=== PATIENT | female | born 1950 | race Caucasian/White ===

== ENCOUNTER 2017-09-30 10:08 | Emergency (ER) | payer MEDICARE, OTHER ==
[~2017-09-30] VITALS: Ht 165.1 cm; Wt 129.3 kg
[~2017-09-30 10:08] MED LIST: ACETAMINOPHEN325 M1 PO; ACIDOPHILUS1 EAC1 PO; ALLOPURINOL300 MG PO; ASPIRIN CHEW81 MG PO; AUGMENTIN 875-1 EACH PO; BACTROBAN15 GM TOP; CLINDAMYCIN HC150 MG PO; COLACE100 MG PO; CORDARONE200 MG PO; COREG3.125 MG PO; CYCLOBENZAPRINE5 MG PO; FERROUS SULFAT325 MG PO; GLIPIZIDE5 MG PO; HUMALOG MI100 UNIT/4; LANTUS100 UNITS/ SC; LASIX40 MG PO; LEVAQUIN500 MG PO; LEVEMIR100 UNIT/1; LEVOTHYROXINE100 MC1 IV; LOFIBRA160 MG PO; MAALOX ADVANCE770 ML PO; NEURONTIN300 MG PO; NORCO 10-325 T1 EACH PO; NYSTATIN1 EAC1 TOP; PERI-COLACE TA1 EACH PO; POTASSIUM CHLO20 ME1 PO; SENOKOT-S TABL1 EACH PO; SYNTHROID100 MCG PO; TEMAZEPAM15 MG PO; TYLENOL WITH C1 EACH PO; ULTRAM50 MG PO; WARFARIN SODIUM2 MG PO; ZOFRAN ODT4 MG PO; ZOLOFT100 MG PO
[2017-09-30 11:08] VITALS: BP 132/63
[2017-09-30 14:11] LABS: RED BLOOD COUNT 4.39 x10e6/uL (3.6-5.1)
[2017-09-30 14:12] LABS: BASOPHILS % 0.7 % (0.0-1.0); EOSINOPHILS # (AUTO) 0.1 (0.0-0.4); EOSINOPHILS % 2.2 % (0.0-6.0); HEMOGLOBIN 13.6 g/dL (12.0-16.0); LYMPHOCYTES % 17.7 % (18.0-39.1); MEAN CORPUSCULAR HGB CONC 32.4 g/dL (31-35); MEAN CORPUSCULAR VOLUME 95.7 fL (81-99); MONOCYTES # (AUTO) 0.3 (0.2-0.8); MONOCYTES % 6.2 % (4.4-11.3); NEUTROPHILS # (AUTO) 3.9 (2.1-6.9); NEUTROPHILS % 72.3 % (38.7-80.0); PLATELET COUNT 179 x10e3/uL (140-360); RED CELL DISTRIBUTION WIDTH 15.4 % (11.7-14.4)
[2017-09-30 14:22] LABS: INR 0.97; PROTHROMBIN TIME 13.4 seconds (11.9-14.5)
[2017-09-30 14:23] LABS: PARTIAL THROMBOPLASTIN TIME 31.9 seconds (23.8-35.5)
[2017-09-30 14:34] LABS: ALBUMIN 3.8 g/dL (3.5-5.0); ALBUMIN/GLOBULIN RATIO 0.9 (0.8-2.0); CALCIUM 9.8 mg/dL (8.4-10.2); CREATININE, SERUM 1.27 mg/dL (0.57-1.11)
== END 2017-09-30 18:22 | disposition left against medical advice (07) ==
LOC: ER 10:08
DX: L03.115 Cellulitis of right lower limb (principal)
CPT/HCPCS: 36415; 80053; 85025; 85610; 85730; 99284

== ENCOUNTER 2018-03-24 12:36 | Outpatient (RCR) | payer MEDICARE, OTHER ==
[2018-03-24] MEDS ORDERED: FLUOCINONIDE 0.05% 1 EA/15 GM TUBE ONE (17:04)
[2018-03-24] MEDS ORDERED: LIDOCAINE VISC 2% SOLN 15 ML UDC ONE (17:04)
== END 2018-03-26 ==
LOC: WCC 12:36
PROVIDERS: ATTEND Family Medicine Adult Medicine
DX: E11.65 Type 2 diabetes mellitus with hyperglycemia (principal); I83.11 Varicose veins of right lower extremity with inflammation; I79.8 Other disorders of arteries, arterioles and capillaries in diseases classified elsewhere; I89.0 Lymphedema, not elsewhere classified; I87.2 Venous insufficiency (chronic) (peripheral); R60.0 Localized edema; M10.9 Gout, unspecified; S80.822A Blister (nonthermal), left lower leg, initial encounter; N18.3 Chronic kidney disease, stage 3 (moderate); I10 Essential (primary) hypertension; I48.2 Chronic atrial fibrillation; I50.9 Heart failure, unspecified; M19.90 Unspecified osteoarthritis, unspecified site; E03.8 Other specified hypothyroidism; G47.33 Obstructive sleep apnea (adult) (pediatric); E66.01 Morbid (severe) obesity due to excess calories; E78.00 Pure hypercholesterolemia, unspecified; F32.9 Major depressive disorder, single episode, unspecified; Z99.3 Dependence on wheelchair
CPT/HCPCS: 36415; 82948

== ENCOUNTER 2018-04-26 01:00 | Outpatient (RCR) | payer MEDICARE, OTHER | END 2018-04-26 02:00 | disposition home or self-care (01) | LOC: WCC 01:00 | PROVIDERS: ATTEND Family Medicine Adult Medicine | DX: E11.65 Type 2 diabetes mellitus with hyperglycemia (principal); I87.312 Chronic venous hypertension (idiopathic) with ulcer of left lower extremity; L97.821 Non-pressure chronic ulcer of other part of left lower leg limited to breakdown of skin; I79.8 Other disorders of arteries, arterioles and capillaries in diseases classified elsewhere; I89.0 Lymphedema, not elsewhere classified; R60.0 Localized edema; I87.2 Venous insufficiency (chronic) (peripheral); I83.11 Varicose veins of right lower extremity with inflammation; M10.9 Gout, unspecified; N18.3 Chronic kidney disease, stage 3 (moderate); I10 Essential (primary) hypertension; I50.9 Heart failure, unspecified; E78.00 Pure hypercholesterolemia, unspecified; E66.01 Morbid (severe) obesity due to excess calories; F32.9 Major depressive disorder, single episode, unspecified; I48.2 Chronic atrial fibrillation; E03.8 Other specified hypothyroidism; M19.90 Unspecified osteoarthritis, unspecified site; G47.33 Obstructive sleep apnea (adult) (pediatric); Z99.3 Dependence on wheelchair | CPT/HCPCS: 36415; 82948 ==

== ENCOUNTER 2018-05-03 01:00 | Outpatient (RCR) | payer MEDICARE, OTHER | END 2018-05-04 01:00 | disposition home or self-care (01) | LOC: WCC 01:00 | PROVIDERS: ATTEND Family Medicine Adult Medicine | DX: E11.65 Type 2 diabetes mellitus with hyperglycemia (principal); I83.11 Varicose veins of right lower extremity with inflammation; I89.0 Lymphedema, not elsewhere classified; R60.0 Localized edema; E03.8 Other specified hypothyroidism; E66.01 Morbid (severe) obesity due to excess calories; E78.00 Pure hypercholesterolemia, unspecified; F32.9 Major depressive disorder, single episode, unspecified; G47.33 Obstructive sleep apnea (adult) (pediatric); I10 Essential (primary) hypertension; I48.2 Chronic atrial fibrillation; I50.9 Heart failure, unspecified; I79.8 Other disorders of arteries, arterioles and capillaries in diseases classified elsewhere; I87.2 Venous insufficiency (chronic) (peripheral); L81.9 Disorder of pigmentation, unspecified; M10.9 Gout, unspecified; M19.90 Unspecified osteoarthritis, unspecified site; N18.3 Chronic kidney disease, stage 3 (moderate); Z99.3 Dependence on wheelchair ==

== ENCOUNTER → 2019-04-24 | Outpatient (CLI) | payer MEDICARE, OTHER ==
--- NOTE | 2019-04-24 12:33 | Diagnostic Imaging Report ---
EXAMINATION: KNEE LEFT THREE VIEWS INDICATION: Knee pain COMPARISON: None FINDINGS: No acute fracture or dislocation. There is varus angulation of the left knee joint. No substantial joint effusion. Severe medial and patellofemoral compartment predominant degenerative changes with joint space narrowing and bulky osteophyte formation. IMPRESSION: No acute osseous injury. Severe medial and patellofemoral compartment predominant degenerative changes with resulting varus angulation of the left knee. Signed by: Nicky Barr MD on 04/24/2019 12:30 PM
--- NOTE | 2019-05-01 08:21 | Diagnostic Imaging Report ---
#[id number] - [id number] #BILATERAL DIGITAL SCREENING MAMMOGRAM WITH CAD: 04/24/2019 CLINICAL: Routine screening. No prior exams were available for comparison. The tissue of both breasts is predominantly fatty. Current study was also evaluated with a Computer Aided Detection (CAD) system. The patient could not tolerate compression and only CC views were obtained. There are benign vascular calcifications in both breasts. No significant masses, calcifications, or other findings are seen in either breast. IMPRESSION: BENIGN Limited study as detailed without mammographic evidence of malignancy. A 1 year screening mammogram is recommended. The patient will be notified by letter of the results. JEFFREY BLACKWELL M.D. mc/:04/28/2019 11:10:43 Php Architect: Xiomara BRICENO)([place]), [facility] letter sent: Normal Exam Mammogram BI-RADS: 2 Benign
== END ==
LOC: MAMMO 11:38
PROVIDERS: ATTEND Internal Medicine
DX: Z12.31 Encounter for screening mammogram for malignant neoplasm of breast (principal); M17.12 Unilateral primary osteoarthritis, left knee
CPT/HCPCS: 77067